=== PATIENT | female | born 1940 | race Caucasian/White ===

== ENCOUNTER 2023-12-10 04:14 | Day surgery (SDC) | payer OTHER, MEDICARE ==
[2023-12-04 17:23] VITALS: BMI 19.1
[2023-12-10 06:47] VITALS: RESP 18
[2023-12-10] MEDS ORDERED: LIDOCAINE HCL/PF 1% SDV 5ML VIAL ONE (07:21)
[2023-12-10] MEDS ORDERED: DEXAMETHASONE SOD PHOSPHATE 10 MG/1 ML VIAL ONE (07:21)
[2023-12-10] MEDS: IOHEXOL 180 MG/1 ML ML IJ ONE (08:19)
[2023-12-10] MEDS: LIDOCAINE HCL 1% PRESERVATIVE FREE - 30ML VIAL IJ ONE (08:19)
[2023-12-10] MEDS: DEXAMETHASONE SOD PHOSPHATE 10 MG/1 ML VIAL IVPUSH ONE (08:20)
[2023-12-10 08:33] VITALS: BP 142/50; PULSE 69; TEMP 97.7
[2023-12-10] MEDS ORDERED: ACETAMINOPHEN 500 MG TABLET (FP) PO PRN (10:01)
== END 2023-12-10 09:00 | disposition home or self-care (01) ==
LOC: JASU-SURG 04:14
PROVIDERS: ATTEND Pain Medicine Pain Medicine
PROC: 3E0R3BZ Introduction of Anesthetic Agent into Spinal Canal, Percutaneous Approach (ICD-10-PCS; 2023-12-10)
PROC: 3E0R33Z Introduction of Anti-inflammatory into Spinal Canal, Percutaneous Approach (ICD-10-PCS; principal; 2023-12-10 08:00)
DX: M54.16 Radiculopathy, lumbar region (principal)
CPT/HCPCS: 76000-TC-FY; J1100

== ENCOUNTER 2024-12-28 06:31 | Day surgery (SDC) | payer OTHER, MEDICARE ==
[2024-12-28] MEDS ORDERED: ACETAMINOPHEN 325 MG TABLET (FP) PO ONE (11:40)
[2024-12-28 13:01] VITALS: PULSE 72
[2024-12-28 14:17] VITALS: TEMP 97.6
[2024-12-28 14:31] LABS: BODY FLUID MESOTHELIAL 2 %; BODY FLUID MONOCYTE 17 %
[2024-12-28 15:01] VITALS: BP 160/60; RESP 20
[2024-12-29 14:07] LABS: BODY FLUID ALBUMIN 1.3 g/dL (Not Estab.)
== END 2024-12-28 15:02 | disposition home or self-care (01) ==
LOC: JRADIR 06:31
PROVIDERS: ATTEND Specialist
PROC: 0W9B3ZX Drainage of Left Pleural Cavity, Percutaneous Approach, Diagnostic (ICD-10-PCS; principal; 2024-12-28)
DX: J90 Pleural effusion, not elsewhere classified (principal)
CPT/HCPCS: 32555; 36415; 71046-TC-FY; 76942; 82042; 82150; 82465; 82945; 83615; 83986; 84157; 84478; 87070; 87075; 87101; 87116; 87205; 87206